=== PATIENT | female | born 1990 | race Asian ===

== ENCOUNTER 2017-07-05 14:28 | Inpatient (IN) | payer OTHER ==
[2017-07-05] MEDS ORDERED: OBEPIDURAL* 0 ML ONE (18:37)
[2017-07-05 18:44] LABS: Hematocrit 36 % (35-47); Hemoglobin 12.7 g/dl (12.0-16.0); Mean Corpuscular HGB Conc 35 g/dl (31-36); Mean Corpuscular Hemoglobin 34 pg (27-31); Mean Corpuscular Volume 96 fL (80-97); Mean Platelet Volume 10 um3 (7.4-10.4); Red Blood Count 3.75 10^6/ul (4.0-5.4); Red Cell Distribution Width 13 % (10.5-15); White Blood Count 10.6 10^3/ul (3.5-10.8)
[2017-07-05] MEDS ORDERED: Oxytocin in LR* 20 UNITS/1,000 ML BAG IVPB ONE (19:34)
[2017-07-05] MEDS ORDERED: Witch Hazel PAD* JAR TOPICAL PRN (20:12)
[2017-07-05] MEDS ORDERED: Glycerin ADULT SUPP PR PRN (20:12)
[2017-07-05] MEDS ORDERED: Acetaminophen TAB* 325 MG PO PRN (20:12)
[2017-07-05] MEDS ORDERED: Dibucaine 1% 28.35 GM TUBE PR PRN (20:12)
[2017-07-05] MEDS ORDERED: Simethicone TAB* 80 MG TAB.CHEW PO SCH (21:00)
[2017-07-06] MEDS: Ibuprofen TAB* 600 MG PO PRN ×3 (05:26→21:55)
[2017-07-06 07:00] LABS: Hematocrit 31 % (35-47); Hemoglobin 11.1 g/dl (12.0-16.0); Mean Corpuscular HGB Conc 35 g/dl (31-36); Mean Corpuscular Hemoglobin 34 pg (27-31); Mean Corpuscular Volume 96 fL (80-97); Mean Platelet Volume 10 um3 (7.4-10.4); Red Blood Count 3.25 10^6/ul (4.0-5.4); Red Cell Distribution Width 13 % (10.5-15); White Blood Count 13.8 10^3/ul (3.5-10.8)
[2017-07-06] MEDS: Docusate CAP* 100 MG PO SCH ×4 (09:59→21:55)
[2017-07-06] MEDS: Ferrous Gluconate TAB* 324 MG TAB PO SCH ×2 (19:57→19:58)
[2017-07-07 08:23] VITALS: BP 104/62
[2017-07-07] MEDS: Docusate CAP* 100 MG PO SCH ×2 (09:05→14:01)
[2017-07-07] MEDS: Ibuprofen TAB* 600 MG PO PRN (09:05)
--- NOTE | 2017-07-07 11:27 | PTEDU ---
Patient Name: MICHELE DE LA PAZ ANA CRISTINAMICHELE selected video: Never Ever Shake a Baby to view on 07/07/2017 at 11:25:58 AM [place] [facility] [id number]
== END 2017-07-07 15:00 | disposition home or self-care (01) | DRG 775 ==
LOC: MCHOBOUT 14:28 → MCHOB 15:33
PROVIDERS: ADMIT Midwife; ATTEND Midwife
PROC: 10907ZC Drainage of Amniotic Fluid, Therapeutic from Products of Conception, Via Natural or Artificial Opening (ICD-10-PCS; principal; 2017-07-05)
PROC: 10E0XZZ Delivery of Products of Conception, External Approach (ICD-10-PCS; 2017-07-05)
PROC: 4A1HXCZ Monitoring of Products of Conception, Cardiac Rate, External Approach (ICD-10-PCS; 2017-07-05)
PROC: 0HQ9XZZ Repair Perineum Skin, External Approach (ICD-10-PCS; 2017-07-05)
PROC: 0UQMXZZ Repair Vulva, External Approach (ICD-10-PCS; 2017-07-05)
DX: O70.0 First degree perineal laceration during delivery (principal); Z37.0 Single live birth; Z3A.39 39 weeks gestation of pregnancy
CPT/HCPCS: 36415; 85025; 86850; 86900; 86901; A9270-GY